=== PATIENT | female | born 1955 | race Caucasian/White ===

== ENCOUNTER 2016-12-23 05:59 | Day surgery (SDC) | payer OTHER ==
[2016-12-23] MEDS ORDERED: Lactated Ringers 1,000 ML IV SCH (06:30)
[2016-12-23] MEDS ORDERED: Ketamine HCl 50 MG/ML IV ONE (08:00)
[2016-12-23] MEDS ORDERED: DIPRIVAN 200 MG/20 ML IV ONE (08:00)
[2016-12-23 08:13] VITALS: O2SAT 96
--- NOTE | 2016-12-23 08:21 | OP ---
SURGERY DATE/TIME: 12/23/2016 0700 PREOPERATIVE DIAGNOSES: 1) Abdominal pain. 2) Alternating diarrhea and constipation. POSTOPERATIVE DIAGNOSES: 1) Normal EGD. 2) Descending colon polyp. PROCEDURES: 1) EGD. 2) Colonoscopy. SURGEON: Judd Carrero M.D. ANESTHESIA: MAC by Fan Ortega CRNA. ESTIMATED BLOOD LOSS: Minimal. SPECIMENS: Hot forceps polypectomy x1. DESCRIPTION OF PROCEDURE: After informed written consent was obtained, the patient was taken to the endoscopy suite. She underwent monitored anesthesia and a bite block was inserted. The endoscope was inserted in posterior oropharynx and under direct visualization the esophagus was traversed. The esophageal mucosa had a normal appearance free of any lesions or defects. Upon entering into the stomach the gastroesophageal junction had a normal appearance free of any lesions or defects. The gastric mucosa was rugated and appeared normal in appearance. The pylorus was traversed and the first and second portions of the duodenum were within normal limits. Upon withdrawal the entire gastric mucosa, gastroesophageal junction and esophageal mucosa were inspected and noted to be within normal limits. The scope was removed and the scopes were switched. Digital rectal exam showed normal sphincter tone, mild external hemorrhoids. The scope was inserted in the rectum and sequentially the entire colonic mucosa was traversed. The level of cecum was reached and verified with direct visualization of ileocecal valve. Upon withdrawal there was a small sessile polyp present in the ascending colon which was removed in its entirety with hot forceps. Good hemostasis and entire removal of the lesion was achieved. The remainder of the exam showed a few scattered diverticula but no other mucosal abnormalities. Prep was noted to be fair. Prior to withdrawal retroflexion was performed which showed no internal lesions. The scope was removed and the patient was transferred to the recovery room in excellent condition.
[2016-12-23 08:30] VITALS: BP 122/64; PULSE 71
== END 2016-12-23 08:41 | disposition home or self-care (01) ==
LOC: SDC 05:59
PROVIDERS: ATTEND Family Medicine
PROC: 0DJ08ZZ Inspection of Upper Intestinal Tract, Via Natural or Artificial Opening Endoscopic (ICD-10-PCS; principal; 2016-12-23)
PROC: 0DBK8ZX Excision of Ascending Colon, Via Natural or Artificial Opening Endoscopic, Diagnostic (ICD-10-PCS; 2016-12-23)
DX: D12.2 Benign neoplasm of ascending colon (principal); R19.7 Diarrhea, unspecified; K59.00 Constipation, unspecified; I10 Essential (primary) hypertension
CPT/HCPCS: 00740; 00810; 36415; 88305; J2704

== ENCOUNTER 2018-12-11 16:29 | Observation (INO) | payer OTHER ==
[2018-12-11] MEDS ORDERED: Nitrostat 0.4 MG (ED) SL ONE ×2 (16:36→16:47)
[2018-12-11] MEDS ORDERED: MORPHINE SULFATE 4 MG INJ IV ONE ×2 (16:36→17:48)
[2018-12-11] MEDS ORDERED: BABY ASPIRIN 81 MG CHEW PO ONE (16:36)
[2018-12-11 16:46] LABS: BASOPHIL % 0.3 % (0.0-0.4); Basophil (Absolute #) 0.02 (0-0.4); Eosinophil % 3.5 % (0.00-5.0); Eosinophil (Absolute #) 0.21 (0-0.5); Granulocyte Absolute (ANC) 3.19 (1.4-6.9); Granulocytes % 53.8 % (36.0-66.0); Hematocrit 40.5 % (35-47); Hemoglobin 13.4 gm/dl (12.0-16.0); Lymphocyte (Absolute #) 2.06 (1.0-4.6); Lymphocytes % 34.7 % (24.0-44.0); Mean Cell Volume 85.1 fl (78-100); Mean Corpuscular Hemoglobin 28.2 pg (26-32); Mean Corpuscular Hgb Concent. 33.1 g/dl (32-36); Mean Platelet Volume 8.3 fl (6-9.5); Monocyte (Absolute #) 0.46 (0.0-1.3); Monocytes % 7.7 % (0.0-12.0); Platelet Count 284 K/mm3 (150-450); Red Blood Count 4.76 M/mm3 (4.1-5.4); Red Cell Distribution Width 13.8 % (11.5-14.0); White Blood Count 5.9 K/mm3 (4.0-10.5)
[2018-12-11] MEDS ORDERED: Sodium Chloride 0.9% 1000 ML 1,000 ML ONE (16:47)
[2018-12-11] MEDS ORDERED: MORPHINE SULFATE 4 MG INJ ONE ×2 (16:47→17:56)
[2018-12-11] MEDS ORDERED: BABY ASPIRIN 81 MG CHEW ONE (16:47)
[2018-12-11] MEDS: Sodium Chloride 0.9% 1000 ML 1,000 ML IV SCH (16:52)
--- NOTE | 2018-12-11 17:01 | ERPHSYRPT ---
- History of Present Illness Time Seen by Provider: 12/11/18 16:59 Historian: patient Exam Limitations: no limitations Patient Subjective Stated Complaint: states has had chest and back and left arm pressure since yesterday. got worse at [facility] this am. has also been having some sob with this. Triage Nursing Assessment: ambulated to room per self. skin w/d, color normal, resp nonlabored. pulses good. Physician History: states has had chest and back and left arm pressure since yesterday. got worse at [facility] this am. has also been having some sob with this. Timing/Duration: today Quality: dullness Location: substernal Chest Pain Radiation: arm Severity of Pain-Max: mild Severity of Pain-Current: mild Modifying Factors: Improves With: nothing Associated Symptoms: denies symptoms Nitro Today/Relief: 0.4 mg x 1 Aspirin Treatment Today: 81 mg x 1 Allergies/Adverse Reactions: aripiprazole [From [facility]] Adverse Reaction (Verified 12/11/18 16:50) Home Medications: Aspirin [[place] Aspirin EC] 81 mg PO DAILY 12/11/18 [History] Atorvastatin Calcium [Lipitor] 40 mg PO DAILY 12/11/18 [History] Escitalopram Oxalate [Lexapro] 20 mg PO HS 12/11/18 [History] Tramadol HCl 50 mg [Ultram 50 mg] 50 mg PO HS 12/11/18 [History] Trazodone HCl [Desyrel] 100 mg PO HS 12/11/18 [History] Valsartan/Hydrochlorothiazide [Valsartan-Hctz 160-12.5 mg Tab] 1 tablet PO DAILY 12/11/18 [History] Hx Tetanus, Diphtheria Vaccination/Date Given: No Hx Influenza Vaccination/Date Given: Yes Hx Pneumococcal Vaccination/Date Given: Yes - Review of Systems Constitutional: No Fever, No Chills Eyes: No Symptoms Ears, Nose, & Throat: No Symptoms Respiratory: No Cough, No Dyspnea Cardiac: Chest Pain, No Edema, No Syncope Abdominal/Gastrointestinal: No Abdominal Pain, No Nausea, No Vomiting, No Diarrhea Genitourinary Symptoms: No Dysuria Musculoskeletal: No Back Pain, No Neck Pain Skin: No Rash Neurological: No Dizziness, No Focal Weakness, No Sensory Changes Psychological: No Symptoms Endocrine: No Symptoms All Other Systems: Reviewed and Negative - Past Medical History Pertinent Past Medical History: Yes Neurological History: Migraines, Stroke Cardiac History: Angina Musculoskeletal History: Degenerative Disk Disease Psycho-Social History: Anxiety, Depression - Past Surgical History Past Surgical History: Yes Gastrointestinal: Cholecystectomy, Hernia Repair Musculoskeletal: Orthopedic Surgery Female Surgical History: Hysterectomy Other Surgical History: cervical spine surgery times two; knee surgery - Social History Smoking Status: Never smoker Exposure to second hand smoke: Yes Drug Use: none Patient Lives Alone: No - Nursing Vital Signs Nursing Vital Signs: Initial Vital Signs Temperature 98.2 F 12/11/18 16:31 Pulse Rate 80 12/11/18 16:31 Respiratory Rate 16 12/11/18 16:31 Blood Pressure 166/85 12/11/18 16:31 O2 Sat by Pulse Oximetry 99 12/11/18 16:31 Pain Scale Pain Intensity 7 - Physical Exam General Appearance: no apparent distress, alert Eye Exam: PERRL/EOMI, eyes nml inspection Ears, Nose, Throat Exam: normal ENT inspection, moist mucous membranes Neck Exam: normal inspection, non-tender, supple, full range of motion Respiratory Exam: normal breath sounds, lungs clear, No respiratory distress Cardiovascular Exam: regular rate/rhythm, normal heart sounds Gastrointestinal/Abdomen Exam: soft, No tenderness, No mass Back Exam: normal inspection, No CVA tenderness, No vertebral tenderness Extremity Exam: normal inspection, normal range of motion Neurologic Exam: alert, oriented x 3, cooperative, normal mood/affect, sensation nml, No motor deficits Skin Exam: normal color, warm, dry SpO2: 99 - Course Nursing assessment & vital signs reviewed: Yes EKG Interpreted by Me: Sinus Rhythm - Radiology Exams Chest X-ray Interpretation: Reviewed by me, Negative Ordered Tests: Active Orders 24 hr Category Date Time Status Marketing Analyst STAT Care 12/11/18 16:38 Active EKG-ER Only STAT Care 12/11/18 16:36 Active IV Insertion STAT Care 12/11/18 16:36 Active Oxygen-ED Only Nasal Cannula 2 lpm Care 12/11/18 16:36 Active CHEST 1 VIEW (PORTABLE) Stat Exams 12/11/18 16:54 Taken CBC W DIFF Stat Lab 12/11/18 16:43 Completed CMP Stat Lab 12/11/18 16:43 Completed NT PRO BNP Stat Lab 12/11/18 16:43 Completed TROPONIN Q3H Lab 12/11/18 16:43 Completed TROPONIN Q3H Lab 12/11/18 19:45 Ordered TROPONIN Q3H Lab 12/11/18 22:45 Ordered TROPONIN Q3H Lab 12/12/18 01:45 Ordered TROPONIN Q3H Lab 12/12/18 04:45 Ordered Medication Summary Generic Name Dose Route Start Last Admin Trade Name Cate PRN Reason Stop Dose Admin Sodium Chloride 1,000 mls @ 50 mls/hr 12/11/18 16:45 12/11/18 16:52 Sodium Chloride 0.9% 1000 Ml IV 01/10/19 16:44 50 mls/hr .Q20H MARYBETH Administration Discontinued Medications Generic Name Dose Route Start Last Admin Trade Name Cate PRN Reason Stop Dose Admin Aspirin 324 mg 12/11/18 16:36 12/11/18 16:51 Baby Aspirin 81 Mg Chew PO 12/11/18 16:37 324 mg STAT ONE Administration Aspirin Confirm 12/11/18 16:47 Baby Aspirin 81 Mg Chew Administered 12/11/18 16:48 Dose 324 mg .ROUTE .STK-MED ONE Morphine Sulfate 4 mg 12/11/18 16:36 12/11/18 16:51 Morphine Sulfate 4 Mg Inj IV 12/11/18 16:37 4 mg STAT ONE Administration Morphine Sulfate Confirm 12/11/18 16:47 Morphine Sulfate 4 Mg Inj Administered 12/11/18 16:48 Dose 4 mg .ROUTE .STK-MED ONE Nitroglycerin 0.4 mg 12/11/18 16:36 12/11/18 16:52 Nitrostat 0.4 Mg (Ed) SL 12/11/18 16:37 0.4 mg STAT ONE Administration Nitroglycerin Confirm 12/11/18 16:47 Nitrostat 0.4 Mg (Ed) Administered 12/11/18 16:48 Dose 0.4 mg SL .STK-MED ONE Lab/Rad Data: Laboratory Result Diagrams 12/11/18 16:43 12/11/18 16:43 Laboratory Results 12/11/18 12/11/18 12/11/18 Range/Units 16:43 16:43 16:43 WBC 5.9 (4.0-10.5) K/mm3 RBC 4.76 (4.1-5.4) M/mm3 Hgb 13.4 (12.0-16.0) gm/dl Hct 40.5 (35-47) % MCV 85.1 (78-100) fl MCH 28.2 (26-32) pg MCHC 33.1 (32-36) g/dl RDW 13.8 (11.5-14.0) % Plt Count 284 (150-450) K/mm3 MPV 8.3 (6-9.5) fl Gran % 53.8 (36.0-66.0) % Eos # (Auto) 0.21 (0-0.5) Absolute Lymphs (auto) 2.06 (1.0-4.6) Absolute Monos (auto) 0.46 (0.0-1.3) Lymphocytes % 34.7 (24.0-44.0) % Monocytes % 7.7 (0.0-12.0) % Eosinophils % 3.5 (0.00-5.0) % Basophils % 0.3 (0.0-0.4) % Absolute Granulocytes 3.19 (1.4-6.9) Basophils # 0.02 (0-0.4) Sodium 142 (137-145) mmol/L Potassium 3.5 (3.5-5.1) mmol/L Chloride 105 (98-107) mmol/L Carbon Dioxide 29 (22-30) mmol/L Anion Gap 12.0 (5-15) MEQ/L BUN 13 (7-17) mg/dL Creatinine 1.12 H (0.52-1.04) mg/dL Estimated GFR 52.6 ML/MIN Glucose 98 (74-106) mg/dL Calcium 9.0 (8.4-10.2) mg/dL Total Bilirubin 0.30 (0.2-1.3) mg/dL AST 27 (14-36) U/L ALT 27 (0-35) U/L Alkaline Phosphatase 81 (38-126) U/L Troponin I < 0.012 (0.000-0.034) ng/mL NT-Pro-B Natriuret Pep 56.9 (0-900) pg/mL Serum Total Protein 6.9 (6.3-8.2) g/dL Albumin 4.1 (3.5-5.0) g/dL - Progress Progress: improved Air Movement: good Discussed with : Magan Britt Counseled pt/family regarding: lab results, diagnosis, need for follow-up, rad results - Departure Time of Disposition: 17:29 Departure Disposition: Observation Clinical Impression: Chest pain, rule out acute myocardial infarction Condition: Fair Critical Care Time: Yes Critical Care Time(excluding separately billable procedures): 30-74 minutes Referrals: NATALIYA MILNER MD [Primary Care Provider] -
[2018-12-11 17:18] LABS: ALBUMIN 4.1 g/dL (3.5-5.0); BILIRUBIN,TOTAL 0.3 mg/dL (0.2-1.3); Creatinine 1 1.12 mg/dL (0.52-1.04); NT PRO BNP 56.9 pg/mL (0-900); Potassium 3.5 mmol/L (3.5-5.1); Total Protein 6.9 g/dL (6.3-8.2)
[2018-12-11] MEDS ORDERED: Ntg 0.2MG/Ml in D5W GLASS*** 250 ML IV ONE (17:27)
[2018-12-11] MEDS ORDERED: Ntg 0.2MG/Ml in D5W GLASS*** 250 ML IV PRN ×2 (17:41→18:31)
[2018-12-11] MEDS ORDERED: PROTONIX 40 MG IV IV ONE ×2 (17:46→17:49)
[2018-12-11] MEDS ORDERED: MAALOX ES 30 ML UNIT DOSE ONE (17:47)
[2018-12-11] MEDS ORDERED: MAALOX ES 30 ML UNIT DOSE PO ONE (18:01)
[2018-12-11] MEDS ORDERED: Zofran 4 MG/2 ML VIAL IV PRN (18:31)
[2018-12-11] MEDS ORDERED: TYLENOL 325 MG PO PRN (18:31)
[2018-12-11] MEDS ORDERED: MAALOX ES 30 ML UNIT DOSE PO PRN (18:31)
[2018-12-11] MEDS ORDERED: MILK OF MAGNESIA 30 ML PO PRN (18:31)
[2018-12-11] MEDS ORDERED: Senokot-S Tablet PO PRN (18:31)
--- NOTE | 2018-12-11 20:58 | XRAY ---
Indication: Chest pain. Comparison: None Portable chest demonstrates bibasilar infiltrates versus atelectasis. Remaining heart and upper lungs unremarkable. Bony thorax intact with mild degenerative changes and lower cervical fusion.
[2018-12-11] MEDS ORDERED: PROVENTIL COMMON CANISTER IH PRN (21:25)
[2018-12-11] MEDS ORDERED: PROVENTIL 2.5 MG/3 ML NEB IH PRN (21:25)
[2018-12-11] MEDS ORDERED: xanAX 0.5 MG PO PRN (21:36)
[2018-12-11] MEDS ORDERED: ULTRAM 50 MG PO PRN (21:38)
[2018-12-11] MEDS ORDERED: DESYREL 50 MG PO ONE (22:00)
[2018-12-11] MEDS ORDERED: Lexapro 10 MG PO ONE (22:00)
[2018-12-12] MEDS: Sodium Chloride 0.9% 1000 ML 1,000 ML IV SCH (03:37)
[2018-12-12 06:18] LABS: Risk Ratio 2.7
[2018-12-12 06:54] VITALS: O2SAT 98
[2018-12-12] MEDS ORDERED: ULTRAM 50 MG PO PRN (07:04)
--- NOTE | 2018-12-12 09:38 | PCM.SSS ---
History of Present Illness - Chief Complaint Chief Complaint: Chest pain r/o OK History of Present Illness: is a 63 year old female pt of Dr. Carrero with PMHx hyperlipidemia, GERD, anxiety/depression, HTN, migraine, chronic neck pain, and hx CVA who came to ER yesterday c/o Chest pain. She started having shortness of breath after the [employer] Basketball game; also c/o pain in her mid back 2-3/10 radiating to the L arm, with palpitations. Overnight she had some palpitations. Yesterday she started having midsternal sharp chest pain, 10/10, dull and heavy, with diaphoresis, that did not resolve even when she laid down. Had pain in the back, L shoulder, and tightness in the L arm. In ER, she felt palpitations. Also c/o several weeks of LLE pain distal to the knee, worse at night. Has torn meniscus and fluid with Mahmood's cyst in the knee. No CP currently. - Review of Systems Respiratory: Short Of Breath Cardiac: Chest Pain, Palpitations, Other (diaphoresis) Abdominal/Gastrointestinal: Nausea Psychological: Anxiety, No Suicidal Ideations All Other Systems: Reviewed and Negative Medications & Allergies Home Medications: Home Medication List Alprazolam 0.25 mg [xanAX 0.25 MG] 0.5 mg PO DAILY PRN 12/11/18 [History Confirmed 12/11/18] Aspirin [[place] Aspirin EC] 162 mg PO DAILY 12/11/18 [History Confirmed ] Atorvastatin Calcium [Lipitor] 40 mg PO DAILY 12/11/18 [History Confirmed ] Escitalopram Oxalate [Lexapro] 20 mg PO HS 12/11/18 [History Confirmed 12/11/18] Tramadol HCl 50 mg [Ultram 50 mg] 50 mg PO HS PRN 12/11/18 [History Confirmed 12/11/18] Trazodone HCl [Desyrel] 100 mg PO HS 12/11/18 [History Confirmed 12/11/18] Valsartan/Hydrochlorothiazide [Valsartan-Hctz 160-12.5 mg Tab] 1 tablet PO DAILY 12/11/18 [History Confirmed 12/11/18] Nitroglycerin 0.4 mg Tablet [Nitrostat 0.4 MG Tablet] 0.4 mg SL DAILY PRN #1 bottle 12/12/18 [Rx] Allergies/Adverse Reactions: Allergies Allergy/AdvReac Type Severity Reaction Status Date / Time onion Allergy Severe Tightness Verified 12/11/18 20:44 of Throat aripiprazole [From Abilify] AdvReac Verified 12/11/18 20:43 - Past Medical History Past Medical History: Yes Neurological History: Migraines, Stroke ENT History: No Pertinent History Cardiac History: Angina, Hypertension Respiratory History: Asthma, Pneumonia Endocrine Medical History: No Pertinent History Musculoskelatal History: Arthritis, Degenerative Disk Disease GI Medical History: Colitis History: No Pertinent History Pyscho-Social History: Anxiety, Depression Reproductive Disorders: Cervical Cancer, Ovarian Cancer, Other Comment: total hysterectomy 1994 precancerous cells in cervix also in ovaries - Female History Are you now?: No - Past Surgical History Past Surgical History: Yes Neuro Surgical History: No Pertinent History Cardiac History: Cardiac Catheterization Respiratory Surgery: No Pertinent History GI Surgical History: Cholecystectomy, Hernia Repair Musculskeletal Surgical Hx: Orthopedic Surgery Female Surgical History: Hysterectomy Other Surgical History: cervical spine surgery times two; left knee surgery times two - Social History Smoking Status: Never smoker Exposure to second hand smoke: Yes (childhood) Alcohol: None Drug Use: none - Physical Exam Vital Signs: Vital Signs - 24 hr Temp Pulse Pulse Resp BP BP Pulse Ox 12/12/18 08:00 77 12/12/18 07:26 97.6 F 72 20 120/59 98 12/12/18 06:50 97.6 F 72 20 120/59 98 12/12/18 06:00 98.5 F 67 17 130/82 100 12/12/18 05:00 98.5 F 67 16 116/77 98 12/12/18 04:00 98.4 F 65 15 102/62 96 12/12/18 03:30 61 12/12/18 03:00 98.9 F 61 14 103/66 97 12/12/18 02:03 95 12/12/18 01:56 56 L 13 103/61 99 12/12/18 01:00 98.2 F 57 L 14 93/51 95 12/12/18 00:00 98.7 F 59 L 12 88/49 88/49 92 L 12/11/18 23:39 64 15 92/49 12/11/18 23:38 62 92/49 12/11/18 23:00 76 14 90/49 90/49 95 12/11/18 22:05 64 15 107/60 12/11/18 22:00 64 15 107/60 98 12/11/18 21:21 68 15 97 12/11/18 21:02 69 15 131/69 12/11/18 21:00 69 15 131/69 97 12/11/18 20:24 98.5 F 69 15 131/69 95 12/11/18 20:00 98.5 F 66 15 131/69 95 12/11/18 19:53 69 16 135/69 12/11/18 18:24 72 16 156/76 100 12/11/18 18:06 63 18 131/63 98 12/11/18 17:42 82 20 131/76 12/11/18 17:29 99 12/11/18 17:19 77 16 131/76 97 12/11/18 16:31 98.2 F 82 80 16 166/85 99 Oxygen-Last 24 hours O2 Percentage 2 Liters = 28% O2 Percentage 2 Liters = 28% O2 Percentage 2 Liters = 28% O2 Percentage 2 Liters = 28% O2 Percentage 2 Liters = 28% O2 Percentage 2 Liters = 28% O2 Percentage 2 Liters = 28% O2 Percentage 2 Liters = 28% O2 Percentage 2 Liters = 28% O2 Percentage 2 Liters = 28% O2 Percentage 2 Liters = 28% O2 Percentage 2 Liters = 28% O2 Percentage 2 Liters = 28% O2 Percentage 2 Liters = 28% O2 Percentage 2 Liters = 28% General Appearance: no apparent distress, alert, obese Neurologic Exam: oriented x 3, cooperative Eye Exam: eyes nml inspection Ears, Nose, Throat Exam: moist mucous membranes Neck Exam: normal inspection, non-tender, No lymphadenopathy Respiratory Exam: normal breath sounds, chest tenderness, No crackles/rales, No rhonchi, No wheezing Cardiovascular Exam: regular rate/rhythm, normal heart sounds, No murmur Gastrointestinal/Abdomen Exam: soft, normal bowel sounds, No tenderness, No distention, No mass, No guarding, No rebound Back Exam: normal inspection, No CVA tenderness, No rash Extremity Exam: normal inspection, swelling (trace LE edema), No pedal edema Skin Exam: normal color, warm, dry, No rash Results - Labs Lab/Micro Results: Lab Results-Last 24 Hours 12/11/18 12/11/18 12/11/18 Range/Units 16:43 16:43 16:43 WBC 5.9 (4.0-10.5) K/mm3 RBC 4.76 (4.1-5.4) M/mm3 Hgb 13.4 (12.0-16.0) gm/dl Hct 40.5 (35-47) % MCV 85.1 (78-100) fl MCH 28.2 (26-32) pg MCHC 33.1 (32-36) g/dl RDW 13.8 (11.5-14.0) % Plt Count 284 (150-450) K/mm3 MPV 8.3 (6-9.5) fl Gran % 53.8 (36.0-66.0) % Eos # (Auto) 0.21 (0-0.5) Absolute Lymphs (auto) 2.06 (1.0-4.6) Absolute Monos (auto) 0.46 (0.0-1.3) Lymphocytes % 34.7 (24.0-44.0) % Monocytes % 7.7 (0.0-12.0) % Eosinophils % 3.5 (0.00-5.0) % Basophils % 0.3 (0.0-0.4) % Absolute Granulocytes 3.19 (1.4-6.9) Basophils # 0.02 (0-0.4) Sodium 142 (137-145) mmol/L Potassium 3.5 (3.5-5.1) mmol/L Chloride 105 (98-107) mmol/L Carbon Dioxide 29 (22-30) mmol/L Anion Gap 12.0 (5-15) MEQ/L BUN 13 (7-17) mg/dL Creatinine 1.12 H (0.52-1.04) mg/dL Estimated GFR 52.6 ML/MIN Glucose 98 (74-106) mg/dL Calcium 9.0 (8.4-10.2) mg/dL Total Bilirubin 0.30 (0.2-1.3) mg/dL AST 27 (14-36) U/L ALT 27 (0-35) U/L Alkaline Phosphatase 81 (38-126) U/L Troponin I < 0.012 (0.000-0.034) ng/mL NT-Pro-B Natriuret Pep 56.9 (0-900) pg/mL Serum Total Protein 6.9 (6.3-8.2) g/dL Albumin 4.1 (3.5-5.0) g/dL Triglycerides (30-150) mg/dL Cholesterol (50-200) mg/dL LDL Cholesterol (30-100) mg/dL HDL Cholesterol (40-60) mg/dL Heart Disease Risk Ratio 12/11/18 12/11/18 12/12/18 Range/Units 19:46 22:45 01:54 WBC (4.0-10.5) K/mm3 RBC (4.1-5.4) M/mm3 Hgb (12.0-16.0) gm/dl Hct (35-47) % MCV (78-100) fl MCH (26-32) pg MCHC (32-36) g/dl RDW (11.5-14.0) % Plt Count (150-450) K/mm3 MPV (6-9.5) fl Gran % (36.0-66.0) % Eos # (Auto) (0-0.5) Absolute Lymphs (auto) (1.0-4.6) Absolute Monos (auto) (0.0-1.3) Lymphocytes % (24.0-44.0) % Monocytes % (0.0-12.0) % Eosinophils % (0.00-5.0) % Basophils % (0.0-0.4) % Absolute Granulocytes (1.4-6.9) Basophils # (0-0.4) Sodium (137-145) mmol/L Potassium (3.5-5.1) mmol/L Chloride (98-107) mmol/L Carbon Dioxide (22-30) mmol/L Anion Gap (5-15) MEQ/L BUN (7-17) mg/dL Creatinine (0.52-1.04) mg/dL Estimated GFR ML/MIN Glucose (74-106) mg/dL Calcium (8.4-10.2) mg/dL Total Bilirubin (0.2-1.3) mg/dL AST (14-36) U/L ALT (0-35) U/L Alkaline Phosphatase (38-126) U/L Troponin I < 0.012 < 0.012 < 0.012 (0.000-0.034) ng/mL NT-Pro-B Natriuret Pep (0-900) pg/mL Serum Total Protein (6.3-8.2) g/dL Albumin (3.5-5.0) g/dL Triglycerides (30-150) mg/dL Cholesterol (50-200) mg/dL LDL Cholesterol (30-100) mg/dL HDL Cholesterol (40-60) mg/dL Heart Disease Risk Ratio 12/12/18 12/12/18 Range/Units 05:25 05:25 WBC (4.0-10.5) K/mm3 RBC (4.1-5.4) M/mm3 Hgb (12.0-16.0) gm/dl Hct (35-47) % MCV (78-100) fl MCH (26-32) pg MCHC (32-36) g/dl RDW (11.5-14.0) % Plt Count (150-450) K/mm3 MPV (6-9.5) fl Gran % (36.0-66.0) % Eos # (Auto) (0-0.5) Absolute Lymphs (auto) (1.0-4.6) Absolute Monos (auto) (0.0-1.3) Lymphocytes % (24.0-44.0) % Monocytes % (0.0-12.0) % Eosinophils % (0.00-5.0) % Basophils % (0.0-0.4) % Absolute Granulocytes (1.4-6.9) Basophils # (0-0.4) Sodium (137-145) mmol/L Potassium (3.5-5.1) mmol/L Chloride (98-107) mmol/L Carbon Dioxide (22-30) mmol/L Anion Gap (5-15) MEQ/L BUN (7-17) mg/dL Creatinine (0.52-1.04) mg/dL Estimated GFR ML/MIN Glucose (74-106) mg/dL Calcium (8.4-10.2) mg/dL Total Bilirubin (0.2-1.3) mg/dL AST (14-36) U/L ALT (0-35) U/L Alkaline Phosphatase (38-126) U/L Troponin I < 0.012 (0.000-0.034) ng/mL NT-Pro-B Natriuret Pep (0-900) pg/mL Serum Total Protein (6.3-8.2) g/dL Albumin (3.5-5.0) g/dL Triglycerides 73 (30-150) mg/dL Cholesterol 118 (50-200) mg/dL LDL Cholesterol 60 (30-100) mg/dL HDL Cholesterol 44 (40-60) mg/dL Heart Disease Risk Ratio 2.7 - Radiology Impressions Radiology Exams & Impressions: Radiology Procedures Category Date Time Status CHEST 1 VIEW (PORTABLE) Stat Exams 12/11/18 16:54 Completed - Other Procedures and Tests Respiratory Therapy 12/11/18 18:31 Oxygen Nasal Cannula 2 lpm 12/11/18 21:26 Peak Expiratory Flow Rate DAILY Respiratory Therapy Assessment DAILY 12/13/18 05:00 EKG DAILY 12/14/18 05:00 EKG DAILY 12/15/18 05:00 EKG DAILY Assessment/Plan (1) Chest pain, rule out acute myocardial infarction Current Visit: Yes Status: Acute Assessment & Plan: Troponins neg x 5. Will f/u outpatient with lexiscan. Code(s): R07.9 - CHEST PAIN, UNSPECIFIED (2) HTN (hypertension) Current Visit: Yes Status: Chronic Qualifiers: Hypertension type: essential hypertension Qualified Code(s): I10 - Essential (primary) hypertension Code(s): I10 - ESSENTIAL (PRIMARY) HYPERTENSION (3) GERD (gastroesophageal reflux disease) Current Visit: Yes Status: Chronic Qualifiers: Esophagitis presence: esophagitis presence not specified Qualified Code(s) : K21.9 - Gastro-esophageal reflux disease without esophagitis Code(s): K21.9 - GASTRO-ESOPHAGEAL REFLUX DISEASE WITHOUT ESOPHAGITIS (4) Leg pain Current Visit: Yes Status: Acute Qualifiers: Laterality: left Qualified Code(s): M79.605 - Pain in left leg Assessment & Plan: will r/o DVT with venous doppler stat this morning. If neg, could be related to Mahmood's cyst. Hospital Summary - Hospital Course Hospital Course: Pt was admitted through ER for chest pain. Also c/o several weeks of LLE pain. Troponins neg x 5; if u/s LLE is negative she will be discharged to home and will f/u with stress test outpatient. - Vitals & Intake/Output Vital Signs: Vital Signs Temperature 97.6 F 12/12/18 07:26 Pulse Rate 77 12/12/18 08:00 Respiratory Rate 20 12/12/18 07:26 Blood Pressure 120/59 12/12/18 07:26 O2 Sat by Pulse Oximetry 98 12/12/18 07:26 Oxygen-Last Documented O2 Percentage 2 Liters = 28% Intake & Output: Intake & Output 12/09/18 12/10/18 12/11/18 12/12/18 11:59 11:59 11:59 11:59 Intake Total 2259 Output Total 950 Balance 1309 Weight 105.4 kg - Lab Result Diagrams: 12/11/18 16:43 12/11/18 16:43 Lab Results-Last 24 Hrs: Lab Results-Last 24 Hours 12/11/18 12/11/18 12/11/18 Range/Units 16:43 16:43 16:43 WBC 5.9 (4.0-10.5) K/mm3 RBC 4.76 (4.1-5.4) M/mm3 Hgb 13.4 (12.0-16.0) gm/dl Hct 40.5 (35-47) % MCV 85.1 (78-100) fl MCH 28.2 (26-32) pg MCHC 33.1 (32-36) g/dl RDW 13.8 (11.5-14.0) % Plt Count 284 (150-450) K/mm3 MPV 8.3 (6-9.5) fl Gran % 53.8 (36.0-66.0) % Eos # (Auto) 0.21 (0-0.5) Absolute Lymphs (auto) 2.06 (1.0-4.6) Absolute Monos (auto) 0.46 (0.0-1.3) Lymphocytes % 34.7 (24.0-44.0) % Monocytes % 7.7 (0.0-12.0) % Eosinophils % 3.5 (0.00-5.0) % Basophils % 0.3 (0.0-0.4) % Absolute Granulocytes 3.19 (1.4-6.9) Basophils # 0.02 (0-0.4) Sodium 142 (137-145) mmol/L Potassium 3.5 (3.5-5.1) mmol/L Chloride 105 (98-107) mmol/L Carbon Dioxide 29 (22-30) mmol/L Anion Gap 12.0 (5-15) MEQ/L BUN 13 (7-17) mg/dL Creatinine 1.12 H (0.52-1.04) mg/dL Estimated GFR 52.6 ML/MIN Glucose 98 (74-106) mg/dL Calcium 9.0 (8.4-10.2) mg/dL Total Bilirubin 0.30 (0.2-1.3) mg/dL AST 27 (14-36) U/L ALT 27 (0-35) U/L Alkaline Phosphatase 81 (38-126) U/L Troponin I < 0.012 (0.000-0.034) ng/mL NT-Pro-B Natriuret Pep 56.9 (0-900) pg/mL Serum Total Protein 6.9 (6.3-8.2) g/dL Albumin 4.1 (3.5-5.0) g/dL Triglycerides (30-150) mg/dL Cholesterol (50-200) mg/dL LDL Cholesterol (30-100) mg/dL HDL Cholesterol (40-60) mg/dL Heart Disease Risk Ratio 12/11/18 12/11/18 12/12/18 Range/Units 19:46 22:45 01:54 WBC (4.0-10.5) K/mm3 RBC (4.1-5.4) M/mm3 Hgb (12.0-16.0) gm/dl Hct (35-47) % MCV (78-100) fl MCH (26-32) pg MCHC (32-36) g/dl RDW (11.5-14.0) % Plt Count (150-450) K/mm3 MPV (6-9.5) fl Gran % (36.0-66.0) % Eos # (Auto) (0-0.5) Absolute Lymphs (auto) (1.0-4.6) Absolute Monos (auto) (0.0-1.3) Lymphocytes % (24.0-44.0) % Monocytes % (0.0-12.0) % Eosinophils % (0.00-5.0) % Basophils % (0.0-0.4) % Absolute Granulocytes (1.4-6.9) Basophils # (0-0.4) Sodium (137-145) mmol/L Potassium (3.5-5.1) mmol/L Chloride (98-107) mmol/L Carbon Dioxide (22-30) mmol/L Anion Gap (5-15) MEQ/L BUN (7-17) mg/dL Creatinine (0.52-1.04) mg/dL Estimated GFR ML/MIN Glucose (74-106) mg/dL Calcium (8.4-10.2) mg/dL Total Bilirubin (0.2-1.3) mg/dL AST (14-36) U/L ALT (0-35) U/L Alkaline Phosphatase (38-126) U/L Troponin I < 0.012 < 0.012 < 0.012 (0.000-0.034) ng/mL NT-Pro-B Natriuret Pep (0-900) pg/mL Serum Total Protein (6.3-8.2) g/dL Albumin (3.5-5.0) g/dL Triglycerides (30-150) mg/dL Cholesterol (50-200) mg/dL LDL Cholesterol (30-100) mg/dL HDL Cholesterol (40-60) mg/dL Heart Disease Risk Ratio 12/12/18 12/12/18 Range/Units 05:25 05:25 WBC (4.0-10.5) K/mm3 RBC (4.1-5.4) M/mm3 Hgb (12.0-16.0) gm/dl Hct (35-47) % MCV (78-100) fl MCH (26-32) pg MCHC (32-36) g/dl RDW (11.5-14.0) % Plt Count (150-450) K/mm3 MPV (6-9.5) fl Gran % (36.0-66.0) % Eos # (Auto) (0-0.5) Absolute Lymphs (auto) (1.0-4.6) Absolute Monos (auto) (0.0-1.3) Lymphocytes % (24.0-44.0) % Monocytes % (0.0-12.0) % Eosinophils % (0.00-5.0) % Basophils % (0.0-0.4) % Absolute Granulocytes (1.4-6.9) Basophils # (0-0.4) Sodium (137-145) mmol/L Potassium (3.5-5.1) mmol/L Chloride (98-107) mmol/L Carbon Dioxide (22-30) mmol/L Anion Gap (5-15) MEQ/L BUN (7-17) mg/dL Creatinine (0.52-1.04) mg/dL Estimated GFR ML/MIN Glucose (74-106) mg/dL Calcium (8.4-10.2) mg/dL Total Bilirubin (0.2-1.3) mg/dL AST (14-36) U/L ALT (0-35) U/L Alkaline Phosphatase (38-126) U/L Troponin I < 0.012 (0.000-0.034) ng/mL NT-Pro-B Natriuret Pep (0-900) pg/mL Serum Total Protein (6.3-8.2) g/dL Albumin (3.5-5.0) g/dL Triglycerides 73 (30-150) mg/dL Cholesterol 118 (50-200) mg/dL LDL Cholesterol 60 (30-100) mg/dL HDL Cholesterol 44 (40-60) mg/dL Heart Disease Risk Ratio 2.7 - Radiology Exams Ordered Rad Exams-Entire Visit: Radiology Procedures Category Date Time Status CHEST 1 VIEW (PORTABLE) Stat Exams 12/11/18 16:54 Completed - Procedures and Test Procedures and Tests throughout Hospitalization: Therapy Orders & Screens 12/11/18 18:31 EKG Q8HX2,QAMX3,PRN Comment: Oxygen Nasal Cannula 2 lpm Comment: 12/11/18 20:43 RT Screen per Nursing Assess ONCE Comment: Protocol Order Physician Instructions: Greater than 3 points order RT Admission Screen Reason For Exam: Triggered on Admission Diagnosis: Chest pain r/o OK Diagnosis: Chest pain r/o OK Pneumonia: No Home O2: No Asthma: Yes CHF: Yes Home CPAP/BIPAP: Yes Home Nebs/MDI: Yes Total Points: 17 12/11/18 21:26 Peak Expiratory Flow Rate DAILY Comment: Reason For Exam: Diagnosis: Chest pain r/o OK Respiratory Therapy Assessment DAILY Comment: Diagnosis: Chest pain r/o OK 12/12/18 01:49 EKG ROUTINE Comment: Diagnosis: Chest pain r/o OK 12/13/18 05:00 EKG DAILY Comment: Diagnosis: Chest pain r/o OK 12/14/18 05:00 EKG DAILY Comment: Diagnosis: Chest pain r/o OK 12/15/18 05:00 EKG DAILY Comment: Diagnosis: Chest pain r/o OK - Discharge Disposition: Home, Self-Care Condition: Good Prescriptions: New Nitroglycerin 0.4 mg Tablet [Nitrostat 0.4 MG Tablet] 0.4 mg SL DAILY PRN #1 bottle PRN Reason: Chest Pain Continue Valsartan/Hydrochlorothiazide [Valsartan-Hctz 160-12.5 mg Tab] 1 tablet PO DAILY Trazodone HCl [Desyrel] 100 mg PO HS Tramadol HCl 50 mg [Ultram 50 mg] 50 mg PO HS PRN PRN Reason: Pain Escitalopram Oxalate [Lexapro] 20 mg PO HS Atorvastatin Calcium [Lipitor] 40 mg PO DAILY Aspirin [[place] Aspirin EC] 162 mg PO DAILY Alprazolam 0.25 mg [xanAX 0.25 MG] 0.5 mg PO DAILY PRN PRN Reason: Anxiety Follow up with: NATALIYA CARRERO MD [Primary Care Provider] - 1 Week
[2018-12-12] MEDS ORDERED: Ecotrin 325 MG PO SCH (10:00)
[2018-12-12] MEDS ORDERED: ZOCOR 20MG PO SCH (10:30)
[2018-12-12] MEDS ORDERED: hydroDIURIL 25 MG PO SCH (11:00)
[2018-12-12] MEDS ORDERED: DIOVAN 80 MG PO SCH (11:00)
--- NOTE | 2018-12-12 11:15 | XRAY ---
Indication: Left lower extremity pain. Two-dimensional sonogram and color Doppler imaging of the major venous vessels of the left leg was performed. Comparison: None No thrombus seen in the examined deep venous vessels of the left leg including greater saphenous vein. Veins demonstrate normal compressibility. Venous waveforms are normal with and without augmentation. Incidental 3.3 x 2.4 x 0.8 cm Mahmood's cyst. Impression: Left leg negative for DVT. Incidental Mahmood's cyst.
[2018-12-12 12:24] VITALS: BP 106/51; PULSE 68
[2018-12-12] MEDS ORDERED: NON-FORMULARY ITEM (Escitalopram Oxalate [Lexapro] 20 MG) PO SCH (22:00)
[2018-12-12] MEDS ORDERED: Lexapro 10 MG PO SCH (22:00)
[2018-12-12] MEDS ORDERED: DESYREL 50 MG PO SCH (22:00)
[2018-12-12] MEDS ORDERED: NON-FORMULARY ITEM (Trazodone Hcl [Desyrel] 100 MG) PO SCH (22:00)
[2018-12-13] MEDS ORDERED: [UNRECOGNIZED DRUG - OTHER] PO SCH (10:00)
[2018-12-13] MEDS ORDERED: ECOTRIN 81 MG PO SCH (10:00)
[2018-12-13] MEDS ORDERED: NON-FORMULARY ITEM (Atorvastatin Calcium [Lipitor] 40 MG) PO SCH (10:00)
[2018-12-13] MEDS ORDERED: HYDROCHLOROTHIAZIDE PO SCH (10:00)
[2018-12-13] MEDS ORDERED: VALSARTAN PO SCH (10:00)
== END 2018-12-12 15:10 | disposition home or self-care (01) ==
LOC: ED 16:29 → MERGE 18:29 → ICU 18:29
PROVIDERS: ADMIT Family Medicine; ATTEND Family Medicine
DX: R07.9 Chest pain, unspecified (principal); E78.5 Hyperlipidemia, unspecified; Z86.73 Personal history of transient ischemic attack (TIA), and cerebral infarction without residual deficits; M54.9 Dorsalgia, unspecified; R00.2 Palpitations; M79.605 Pain in left leg; Z79.899 Other long term (current) drug therapy; I10 Essential (primary) hypertension; K21.9 Gastro-esophageal reflux disease without esophagitis; R11.0 Nausea; R61 Generalized hyperhidrosis
CPT/HCPCS: 36000; 36415; 71045; 80053; 80061; 83721; 83880; 84484; 85025; 93005; 93041; 93268; 93971; 96360; 96361; 96365; 96374; 96375; 96376; 99285; G0378; J2270; A9270-GY

== ENCOUNTER 2021-02-06 06:38 | Day surgery (SDC) | payer OTHER ==
[~2021-02-06 06:38] MED LIST: Lactated Ringers 1,000 ML IV SCH
[2021-02-06] MEDS ORDERED: DIPRIVAN 200 MG/20 ML IV ONE ×2 (07:59→08:26)
[2021-02-06] MEDS ORDERED: Versed 2 MG/2 ML Injection ONE (08:00)
--- NOTE | 2021-02-06 09:02 | OP ---
SURGERY DATE/TIME: 02/06/2021 0800 PREOPERATIVE DIAGNOSES: 1) Change in bowel habits. 2) History of colon polyps. POSTOPERATIVE DIAGNOSIS: Normal colon. PROCEDURE: Colonoscopy. SURGEON: Judd Carrero M.D. ANESTHESIA: MAC by Wilder Frances CRNA. ESTIMATED BLOOD LOSS: None. SPECIMENS: None. DESCRIPTION OF PROCEDURE: After informed written consent was obtained, the patient was taken to the endoscopy suite. She was placed in left lateral decubitus position. Anesthesia was titrated to desired level of consciousness. A digital rectal exam showed normal sphincter tone and no internal lesions. The scope was inserted into the rectum and sequentially the entire colonic mucosa was traversed. The level of cecum was reached and verified with direct visualization of the ileocecal valve. Upon withdrawal careful mucosal inspection revealed no gross abnormalities. Prep was noted to be good. The scope was removed and the patient was transferred to the recovery room in good condition.
[2021-02-06 10:39] VITALS: BP 122/74; PULSE 73; O2SAT 97
== END 2021-02-06 10:35 | disposition home or self-care (01) ==
LOC: SDC 06:38
PROVIDERS: ATTEND Family Medicine
DX: R19.7 Diarrhea, unspecified (principal); R19.4 Change in bowel habit; Z86.010 Personal history of colon polyps; I10 Essential (primary) hypertension
CPT/HCPCS: J2250; J2704

== ENCOUNTER 2021-05-21 10:25 | Observation (INO) | payer OTHER ==
[2021-05-21] MEDS ORDERED: TYLENOL 325 MG PO PRN (10:48)
[2021-05-21] MEDS ORDERED: Zofran 4 MG/2 ML VIAL IV PRN (10:49)
[2021-05-21] MEDS ORDERED: VANCOCIN 1 GM VIAL*** 1 GM in Sodium Chloride 0.9% 250 ML 250 ML IV SCH (11:00)
[2021-05-21 11:28] LABS: BASOPHIL % 0.1 % (0.0-0.4); Basophil (Absolute #) 0.01 (0-0.4); Eosinophil % 3.9 % (0.00-5.0); Eosinophil (Absolute #) 0.28 (0-0.5); Hematocrit 43.2 % (35-47); Hemoglobin 14.3 gm/dl (12.0-16.0); Lymphocytes % 33.7 % (24.0-44.0); Mean Cell Volume 86.2 fl (78-100); Mean Corpuscular Hemoglobin 28.5 pg (26-32); Mean Corpuscular Hgb Concent. 33.1 g/dl (32-36); Mean Platelet Volume 8.4 fl (7.5-11.0); Monocyte (Absolute #) 0.43 (0.0-1.3); Neutrophil % 56.3 % (36.0-66.0); Platelet Count 316 K/mm3 (150-450); Red Blood Count 5.01 M/mm3 (4.1-5.4); Red Cell Distribution Width 13.8 % (11.5-14.0); White Blood Count 7.1 K/mm3 (4.0-10.5)
[2021-05-21] MEDS ORDERED: Lexapro 10 MG PO SCH (11:30)
[2021-05-21 11:45] LABS: ALBUMIN 4.2 g/dL (3.5-5.0); ANION GAP 12.9 MEQ/L (5-15); BILIRUBIN,TOTAL 0.4 mg/dL (0.2-1.3); Calcium 9.4 mg/dL (8.4-10.2); Creatinine 1 1.01 mg/dL (0.52-1.04); EST GLOMERULAR FILTRATION RATE 58.7 ML/MIN; Potassium 4.1 mmol/L (3.5-5.1); Total Protein 7.1 g/dL (6.3-8.2)
[2021-05-21] MEDS: ROCEPHIN 1 Gm-D5w 50 ml Bag** 1 G/50 ML IVPB IV SCH (12:41)
[2021-05-21] MEDS: VANCOMYCIN 1.5 GRAM/300 ML BAG 1.5 GM/300 ML PIGGYBACK IV SCH (13:42)
--- NOTE | 2021-05-21 16:32 | XRAY ---
Indication: Right periorbital swelling and pain following fall 2 weeks ago. Multiple contiguous axial images obtained through the orbits prior to and following 80 cc Isovue 370 contrast as ordered. Sagittal and coronal reformatted images obtained. Comparison: None Mild right periorbital and minimal right facial soft tissue swelling/edema with minimal enhancement either posttraumatic versus inflammatory/infectious. No walled off fluid collection or soft tissue emphysema. Orbits including extra ocular muscles and optic nerves are bilaterally symmetric. No acute fracture, suspicious bony lesions, or radiopaque foreign body. Orbits including roof, gonzalez, floors are intact. Paranasal sinuses and nasal passages are clear. Mild nasal septal deviation to the right. Remaining visualized soft tissues including base of the brain unremarkable. Patient is edentulous. Impression: 1. Right periorbital soft tissue swelling/edema with enhancement either posttraumatic versus inflammatory/infectious. 2. Minimal nasal septal deviation. 3. Remaining CT orbits with and without contrast exam is negative.
[2021-05-21] MEDS: DESYREL 50 MG PO SCH (21:41)
[2021-05-21] MEDS: Lexapro 10 MG PO SCH (21:41)
[2021-05-21] MEDS: NORCO 5/325 MG PO PRN (21:42)
--- NOTE | 2021-05-22 07:47 | PCM.NOTE ---
Date and Time: 05/22/21 0746 Subjective Assessment: patient notes slight improvement in swelling/tightness around right eye and throbbing has improved. no new complaints Objective Exam General Appearance: no apparent distress, alert Wound Assessment: Skin/Wound Assessment Wound/Incision Assessment Start: 05/21/21 10:45 Text: Status: Active Freq: Q6H Protocol: Document 05/22/21 03:00 ZULEYKA (Rec: 05/22/21 04:22 [email or web address] [id number]) Wound/Incision Assessment Right Eye Wound Assessment Shift Assessment Wound Type cellulitis Wound Stage Non Pressure Wound Drainage Amount Minimal Drainage Description Yellow Surrounding Tissue Bright Red,Edematous Comment open to air; redness and swelling extends from right eye to right cheek Eye Exam: other (soft tissue swelling right periorbital region, no proptosis, EOMI) Respiratory Exam: normal breath sounds, lungs clear, No respiratory distress Cardiovascular Exam: regular rate/rhythm, normal heart sounds Gastrointestinal/Abdomen Exam: soft, No tenderness, No mass Extremity Exam: normal inspection, normal range of motion OBJECTIVE DATA Vital Signs: Vital Signs - 24 hr Temp Pulse Resp BP Pulse Ox 05/22/21 04:10 98.0 F 67 18 86/39 93 L 05/21/21 23:45 97.5 F 75 19 92/50 96 05/21/21 20:00 97.7 F 73 18 130/60 96 05/21/21 11:37 97.9 F 86 20 120/60 95 05/21/21 11:30 97.9 F 86 20 120/60 95 Pain Assessment - Last Documented Pain Intensity 2 Pain Scale Used 0-10 Pain Scale Intake and Output: Intake & Output 05/19/21 05/20/21 05/21/21 05/22/21 11:59 11:59 11:59 11:59 Intake Total 2560 Output Total 2900 Balance -340 Weight 111.3 kg Lab Results: Lab Results-Last 24 Hours 05/21/21 05/21/21 05/21/21 Range/Units 11:00 11:00 11:05 WBC 7.1 (4.0-10.5) K/mm3 RBC 5.01 (4.1-5.4) M/mm3 Hgb 14.3 (12.0-16.0) gm/dl Hct 43.2 (35-47) % MCV 86.2 (78-100) fl MCH 28.5 (26-32) pg MCHC 33.1 (32-36) g/dl RDW 13.8 (11.5-14.0) % Plt Count 316 (150-450) K/mm3 MPV 8.4 (7.5-11.0) fl Gran % 56.3 (36.0-66.0) % Eos # (Auto) 0.28 (0-0.5) Absolute Lymphs (auto) 2.40 (1.0-4.6) Absolute Monos (auto) 0.43 (0.0-1.3) Lymphocytes % 33.7 (24.0-44.0) % Monocytes % 6.0 (0.0-12.0) % Eosinophils % 3.9 (0.00-5.0) % Basophils % 0.1 (0.0-0.4) % Absolute Granulocytes 4.00 (1.4-6.9) Basophils # 0.01 (0-0.4) Sodium 135 L (137-145) mmol/L Potassium 4.1 (3.5-5.1) mmol/L Chloride 103 (98-107) mmol/L Carbon Dioxide 23 (22-30) mmol/L Anion Gap 12.9 (5-15) MEQ/L BUN 19 H (7-17) mg/dL Creatinine 1.01 (0.52-1.04) mg/dL Estimated GFR 58.7 ML/MIN Glucose 117 H (74-106) mg/dL Calcium 9.4 (8.4-10.2) mg/dL Total Bilirubin 0.40 (0.2-1.3) mg/dL AST 33 (14-36) U/L ALT 25 (0-35) U/L Alkaline Phosphatase 87 (38-126) U/L Serum Total Protein 7.1 (6.3-8.2) g/dL Albumin 4.2 (3.5-5.0) g/dL SARS-CoV-2 (PCR) NEGATIVE (NEGATIVE) Radiology Exams: Radiology Procedures Category Date Time Status ORBITS W/W0 CONTRAST [CT] Routine Exams 05/21/21 10:45 Completed Assessment/Plan (1) Periorbital cellulitis Current Visit: Yes Status: Acute Assessment & Plan: continue vanc/rocephin, slight improvement. no abscess on CT scan Code(s): L03.213 - PERIORBITAL CELLULITIS
[2021-05-22] MEDS: ROCEPHIN 1 Gm-D5w 50 ml Bag** 1 G/50 ML IVPB IV SCH (09:42)
[2021-05-22] MEDS: NORCO 5/325 MG PO PRN (09:48)
[2021-05-22] MEDS ORDERED: [UNRECOGNIZED DRUG - OTHER] PO SCH (10:00)
[2021-05-22] MEDS ORDERED: ECOTRIN 81 MG PO SCH (10:00)
[2021-05-22] MEDS ORDERED: ASPIRIN 162 MG PO SCH (10:00)
[2021-05-22] MEDS ORDERED: LIPITOR 40MG PO SCH (10:00)
[2021-05-22] MEDS ORDERED: hydroDIURIL 25 MG PO SCH (10:00)
[2021-05-22] MEDS ORDERED: VALSARTAN PO SCH (10:00)
[2021-05-22] MEDS ORDERED: DIOVAN 80 MG PO SCH (10:00)
[2021-05-22] MEDS ORDERED: ZOCOR 20MG PO SCH (10:00)
[2021-05-22] MEDS ORDERED: HYDROCHLOROTHIAZIDE PO SCH (10:00)
[2021-05-22] MEDS: VANCOMYCIN 1.5 GRAM/300 ML BAG 1.5 GM/300 ML PIGGYBACK IV SCH (10:23)
[2021-05-22] MEDS: Lexapro 10 MG PO SCH (21:13)
[2021-05-22] MEDS: DESYREL 50 MG PO SCH (21:13)
[2021-05-23 00:13] VITALS: BP 130/60
[2021-05-23 04:58] LABS: Absolute Neutrophil Ct (ANC) 3.91 (1.4-6.9); BASOPHIL % 0.3 % (0.0-0.4); Basophil (Absolute #) 0.02 (0-0.4); Eosinophil % 4.9 % (0.00-5.0); Eosinophil (Absolute #) 0.35 (0-0.5); Hematocrit 41.2 % (35-47); Hemoglobin 13.2 gm/dl (12.0-16.0); Lymphocyte (Absolute #) 2.31 (1.0-4.6); Lymphocytes % 32.6 % (24.0-44.0); Mean Cell Volume 87.8 fl (78-100); Mean Corpuscular Hemoglobin 28.1 pg (26-32); Mean Platelet Volume 8.5 fl (7.5-11.0); Monocytes % 7.1 % (0.0-12.0); Neutrophil % 55.1 % (36.0-66.0); Platelet Count 276 K/mm3 (150-450); Red Blood Count 4.69 M/mm3 (4.1-5.4); White Blood Count 7.1 K/mm3 (4.0-10.5)
[2021-05-23 05:14] LABS: Calcium 9.4 mg/dL (8.4-10.2); Creatinine 1 1.09 mg/dL (0.52-1.04); EST GLOMERULAR FILTRATION RATE 53.7 ML/MIN; Potassium 4.1 mmol/L (3.5-5.1)
--- NOTE | 2021-05-23 07:59 | PCM.DS ---
Discharge Summary Date of Admission: 05/21/21 10:32 Admitting Physician: NATALIYA MILNER Primary Care Provider: NATALIYA MILNER Allergies Allergies onion Allergy (Severe, Verified 05/21/21 10:47) Tightness of Throat aripiprazole [From Abilify] Adverse Reaction (Verified 05/21/21 10:47) [facility] Hospital Summary - Hospital Course Hospital Course: patient was admitted with periorbital cellulitis right eye, she had failed outpatient treatment with augmentin, ct showed no abscess. she has improved a great deal since admission on vanc and rocephin, will d/c to home on clindamycin today. - Vitals & Intake/Output Vital Signs: Vital Signs Temperature 97.6 F 05/23/21 00:00 Pulse Rate 70 05/23/21 00:00 Respiratory Rate 16 05/23/21 00:00 Blood Pressure 130/60 05/23/21 00:00 O2 Sat by Pulse Oximetry 92 L 05/23/21 00:00 Intake & Output: Intake & Output 05/20/21 05/21/21 05/22/21 05/23/21 11:59 11:59 11:59 11:59 Intake Total 3040 840 Output Total 2901 501 Balance 139 339 Weight 111.3 kg - Lab Result Diagrams: 05/23/21 04:15 05/23/21 04:15 Lab Results-Last 24 Hrs: Lab Results-Last 24 Hours 05/23/21 05/23/21 Range/Units 04:15 04:15 WBC 7.1 (4.0-10.5) K/mm3 RBC 4.69 (4.1-5.4) M/mm3 Hgb 13.2 (12.0-16.0) gm/dl Hct 41.2 (35-47) % MCV 87.8 (78-100) fl MCH 28.1 (26-32) pg MCHC 32.0 (32-36) g/dl RDW 14.0 (11.5-14.0) % Plt Count 276 (150-450) K/mm3 MPV 8.5 (7.5-11.0) fl Gran % 55.1 (36.0-66.0) % Eos # (Auto) 0.35 (0-0.5) Absolute Lymphs (auto) 2.31 (1.0-4.6) Absolute Monos (auto) 0.50 (0.0-1.3) Lymphocytes % 32.6 (24.0-44.0) % Monocytes % 7.1 (0.0-12.0) % Eosinophils % 4.9 (0.00-5.0) % Basophils % 0.3 (0.0-0.4) % Absolute Granulocytes 3.91 (1.4-6.9) Basophils # 0.02 (0-0.4) Sodium 135 L (137-145) mmol/L Potassium 4.1 (3.5-5.1) mmol/L Chloride 101 (98-107) mmol/L Carbon Dioxide 27 (22-30) mmol/L Anion Gap 11.0 (5-15) MEQ/L BUN 20 H (7-17) mg/dL Creatinine 1.09 H (0.52-1.04) mg/dL Estimated GFR 53.7 ML/MIN Glucose 106 (74-106) mg/dL Calcium 9.4 (8.4-10.2) mg/dL Micro Results-Entire Visit: Microbiology 05/21/21 11:00 Blood Culture - Preliminary Blood NO GROWTH TO DATE - Radiology Exams Ordered Rad Exams-Entire Visit: Radiology Procedures Category Date Time Status ORBITS W/W0 CONTRAST [CT] Routine Exams 05/21/21 10:45 Completed Discharge Exam General Appearance: no apparent distress, obese Neurologic Exam: alert, oriented x 3 Eye Exam: other (mild periorbital swelling improved to right eye, erythema/induration/tenderness nearly resolved) Respiratory Exam: normal breath sounds, lungs clear, No respiratory distress Cardiovascular Exam: regular rate/rhythm, normal heart sounds Gastrointestinal/Abdomen Exam: soft, No tenderness, No mass Extremity Exam: normal inspection, normal range of motion Skin Exam: normal color, warm, dry Wound Assessment: Skin/Wound Assessment Wound/Incision Assessment Start: 05/21/21 10:45 Text: Status: Active Freq: Q6H Protocol: Document 05/23/21 02:38 TC (Rec: 05/23/21 02:39 TC [id number]) Wound/Incision Assessment Right Eye Wound Assessment Shift Assessment Wound Type CELLULITIS Wound Stage Non Pressure Wound Drainage Amount Minimal Drainage Description Yellow Surrounding Tissue [place],Edematous Comment area open to air Wound Photo Photo Taken No Final Diagnosis/Problem List - Final Discharge Diagnosis/Problem (1) Periorbital cellulitis Current Visit: Yes Status: Acute Assessment & Plan: home on po cleocin Code(s): L03.213 - PERIORBITAL CELLULITIS - Discharge Disposition: Home, Self-Care Condition: Stable Prescriptions: New Clindamycin HCl 300 mg PO QID #28 Continue Aspirin 162 mg PO DAILY Hydrocodone Bit/Acetaminophen [Hydrocodon-Acetaminophen 5-325] 1 each PO Q4- 6HPRN PRN PRN Reason: Pain Valsartan/Hydrochlorothiazide [Valsartan-Hctz 160-12.5 mg Tab] 1 tablet PO DAILY Trazodone HCl [Desyrel] 100 mg PO HS Tramadol HCl 50 mg [Ultram 50 mg] 50 mg PO HS PRN PRN Reason: Pain Escitalopram Oxalate [Lexapro] 20 mg PO HS Atorvastatin Calcium [Lipitor] 40 mg PO DAILY Estradiol [Estrace] 42.5 gm VG 3XW Follow up with: NATALIYA MILNER MD [Primary Care Provider] -
[2021-05-23 08:25] VITALS: PULSE 77; O2SAT 96
[2021-05-24] MEDS ORDERED: TROUGH DRUG LEVELS IJ ONE (09:30)
== END 2021-05-23 09:03 | disposition home or self-care (01) ==
LOC: MED SURG 10:32
PROVIDERS: ADMIT Family Medicine; ATTEND Family Medicine
DX: L03.213 Periorbital cellulitis (principal); Z79.899 Other long term (current) drug therapy; Z20.822 Contact with and (suspected) exposure to COVID-19
CPT/HCPCS: 36415; 70482; 80048; 80053; 85025; 87040; U0003; G0378; J0696; J2405; A9270-GY; J3370

== ENCOUNTER 2024-06-08 06:17 | Day surgery (SDC) | payer MEDICARE ==
[2024-06-08 07:09] VITALS: RESP 18
[2024-06-08] MEDS: Lactated Ringers 1,000 ML IV SCH (07:09)
[2024-06-08] MEDS ORDERED: DIPRIVAN 200 MG/20 ML IV ONE ×2 (07:10→08:25)
[2024-06-08] MEDS ORDERED: Xylocaine-Mpf 2% 5 Ml Vial ONE (07:58)
[2024-06-08] MEDS ORDERED: DEXMEDETOMIDINE 80 MCG/20ML-NS IV ONE (08:15)
[2024-06-08] MEDS ORDERED: Ephedrine Sulfate 50 MG/ML ONE (08:17)
[2024-06-08] MEDS ORDERED: ATROPINE SULFATE 1MG ONE (08:20)
[2024-06-08 09:17] VITALS: TEMP 97.8; O2SAT 92
[2024-06-08 09:28] VITALS: BP 98/62; PULSE 65
--- NOTE | 2024-06-09 08:45 | OP ---
SURGERY DATE/TIME: 06/08/2024 [id number] PREOPERATIVE DIAGNOSES: 1) Change in bowel habits. 2) Hematochezia. POSTOPERATIVE DIAGNOSES: 1) Normal esophagogastroduodenoscopy. 2) Normal colon. PROCEDURES PERFORMED: Esophagogastroduodenoscopy and colonoscopy. SURGEON: Judd Carrero MD ANESTHESIA: MAC by Arsalan Vu CRNA. ESTIMATED BLOOD LOSS: Minimal. SPECIMENS: Two random sigmoid cold forceps biopsies to rule out collagenous colitis. DESCRIPTION OF PROCEDURE AND FINDINGS: After informed written consent was obtained, the patient was taken to the endoscopy suite. She was placed in the left lateral decubitus position and a bite block was inserted after anesthesia was titrated to the desired level of consciousness. The endoscope was then inserted into the posterior oropharynx. Under direct visualization, the esophagus was easily traversed. Esophageal mucosa had normal appearance. No obvious lesions or defects were seen. Upon entering the stomach, there was normal rugated gastric mucosa. There were no mucosal lesions or abnormalities, no ulcerations or area of bleeding were identified. The pylorus was traversed. The first and second portions of the duodenum had a normal appearance. There was no strictures or masses encountered in that region. Following withdrawal, again all mucosal structures appeared normal. Scope was removed and then the scopes were switched. Digital rectal exam showed normal sphincter tone and no internal lesions. The scope was inserted in the rectum, and sequentially the entire colonic mucosa was traversed. The level of the cecum was reached and verified with direct visualization of the ileocecal valve. Upon withdrawal, careful mucosal inspection revealed no gross abnormalities. Prep was noted to be fair. There was some minimal indistinct inflammation in the distal sigmoid/rectosigmoid region. Two cold forceps biopsies were taken from this region to rule out microscopic or collagenous colitis. There was minimal blood loss. Prior to withdrawal, retroflexion showed no internal lesions. Scope was removed. Patient was transferred to the recovery room in good condition. She had been advised to followup up in 1 week for pathology results.
== END 2024-06-08 09:32 | disposition home or self-care (01) ==
LOC: SDC 06:17
PROVIDERS: ATTEND Family Medicine
DX: R19.4 Change in bowel habit (principal); K92.1 Melena
CPT/HCPCS: 93005; J0461; J2704